=== PATIENT | male | born 1995 | race Caucasian/White ===

== ENCOUNTER 2024-02-27 09:38 | Inpatient (IN) | payer OTHER ==
[2024-02-27] MEDS: ONDANSETRON 4 MG/2 ML VIAL IVP STA (10:25)
[2024-02-27] MEDS: SODIUM CHLORIDE 0.9% 1,000 ML IV STA (10:25)
[2024-02-27] MEDS: LORazepam 2 MG/ML INJ IV STA (10:25)
[2024-02-27 10:31] LABS: INR 1.2 (<1.2); Prothrombin Time 12.5 sec (10.0-12.5)
[2024-02-27 10:42] LABS: ALT 88 U/L (4-49); AST 155 U/L (17-59); African American GFR (CKD) >90 (>60 ml/min/1.73 sqM); Albumin 4.7 g/dL (3.5-5.0); Alkaline Phosphatase 134 U/L (38-126); Amylase 47 U/L (30-110); Anion Gap 20 mmol/L; Blood Urea Nitrogen 11 mg/dL (9-20); Carbon Dioxide 24 mmol/L (22-30); Chloride 94 mmol/L (98-107); Glucose 107 mg/dL (74-99); Lipase 357 U/L (23-300); Non-African American GFR(CKD) >90 (>60 ml/min/1.73 sqM); Phosphorus 1.9 mg/dL (2.5-4.5); Potassium 3.4 mmol/L (3.5-5.1); Sodium 138 mmol/L (137-145); Total Protein 7.1 g/dL (6.3-8.2)
[2024-02-27 10:43] LABS: Basophils % (A) 1 %; Eosinophils % (A) 1 %; HCT 52.5 % (39.0-53.0); HGB 17.8 gm/dL (13.0-17.5); Lymphocytes # (A) 1.7 k/uL (1.0-4.8); Lymphocytes % (A) 23 %; MCH 29.9 pg (25.0-35.0); MCHC 33.9 g/dL (31.0-37.0); Mean Platelet Volume 7.9; Monocytes # (A) 0.6 k/uL (0-1.0); Monocytes % (A) 8 %; Neutrophils # (A) 4.9 k/uL (1.3-7.7); Neutrophils % (A) 67 %; Platelet Count 165 k/uL (150-450); RBC 5.96 m/uL (4.30-5.90); RDW 11.9 % (11.5-15.5); WBC 7.4 k/uL (3.8-10.6)
[2024-02-27 10:55] LABS: Alcohol 449 mg/dL
--- NOTE | 2024-02-27 11:04 | ED ---
Alcohol HPI - General Chief Complaint: Alcohol Stated Complaint: Intoxication Time Seen by Provider: 02/27/24 09:41 Source: family, EMS, RN notes reviewed Mode of arrival: EMS Limitations: altered mental status - History of Present Illness Initial Comments: This is a 28-year-old male who presents to the emergency department for alcohol intoxication. Patient typically drinks a fifth of liquor daily and planned to check into [facility] today, however his alcohol level was too high and he was sent to the emergency department. His mom states that he was sober for 90 days in January and then relapsed about 3 weeks ago. He has been to rehab before and he has also required hospitalization for intoxication. He does not have a history of withdrawal seizures but does typically have shaking and nausea. MD Complaint: alcohol intoxication - Related Data Home Medications Medication Instructions Recorded Confirmed Desvenlafaxine Succinate [Pristiq] 50 mg PO DAILY 02/27/24 02/27/24 Gabapentin 300 mg PO Q8H 02/27/24 02/27/24 Lurasidone [Latuda] 60 mg PO DAILY 02/27/24 02/27/24 Prazosin HCl [Minipress] 4 mg PO HS 02/27/24 02/27/24 Propranolol [Inderal] 10 mg PO TID 02/27/24 02/27/24 QUEtiapine FUMARATE [SEROquel] 200 mg PO HS 02/27/24 02/27/24 hydrOXYzine pamoate [Vistaril] 50 mg PO BID PRN 02/27/24 02/27/24 Allergies Allergy/AdvReac Type Severity Reaction Status Date / Time No Known Allergies Allergy Verified 02/27/24 10:12 Review of Systems ROS Statement: Those systems with pertinent positive or pertinent negative responses have been documented in the HPI. ROS Other: All systems not noted in ROS Statement are negative. Past Medical History Past Surgical History: Tonsillectomy Past Psychological History: Anxiety, Depression Smoking Status: Current every day smoker Past Alcohol Use History: Abuse Past Drug Use History: Marijuana General Exam General appearance: alert, appears intoxicated Head exam: Present: atraumatic, normocephalic, normal inspection Respiratory exam: Present: normal lung sounds bilaterally. Absent: respiratory distress, wheezes, rales, rhonchi, stridor Cardiovascular Exam: Present: regular rate, normal rhythm, normal heart sounds. Absent: systolic murmur, diastolic murmur, rubs, gallop, clicks GI/Abdominal exam: Present: soft, normal bowel sounds. Absent: distended, tenderness, guarding, rebound, rigid Neurological exam: Present: alert, oriented X3, CN II-XII intact Psychiatric exam: Present: normal affect, normal mood Skin exam: Present: warm, dry, intact, normal color. Absent: rash Course Vital Signs 02/27/24 02/27/24 02/27/24 09:41 10:31 11:23 Temperature 97.6 F Pulse Rate 107 H 108 H 105 H Respiratory 16 16 16 Rate Blood Pressure 97/78 131/117 128/80 O2 Sat by Pulse 98 98 95 Oximetry 02/27/24 02/27/24 02/27/24 11:52 12:00 13:03 Temperature Pulse Rate 89 100 96 Respiratory 14 14 14 Rate Blood Pressure 115/73 123/75 109/66 O2 Sat by Pulse 94 L 98 98 Oximetry 02/27/24 02/27/24 02/27/24 14:50 15:54 16:06 Temperature Pulse Rate 106 H 135 H Respiratory 14 14 Rate Blood Pressure 121/76 119/79 O2 Sat by Pulse 99 93 L 100 Oximetry Medical Decision Making - Medical Decision Making This is a 28 year old male who presents to the emergency department for alcohol intoxication. Was pt. sent in by a medical professional or institution? @ -[facility] Did you speak to anyone other than the patient for history? @ -His mother provided the majority of the history. Did you review nursing and triage notes? @ -Yes, and I agree, it is accurate with regards to the patient's symptoms. Were old charts reviewed? @ -No Differential Diagnosis? @ -Differential Alcoholism: Sympathomimetic syndrome, anti-muscarinic syndrome, serotonin syndrome, humaira roleptic malignant syndrome, thyrotoxicosis, encephalitis, acute psychosis, hypoglycemia, trauma, sepsis. This is not meant to be an all-inclusive list. EKG interpreted by me (3pts min.)? @ -Not obtained X-rays interpreted by me (1pt min.)? @ -Not obtained CT interpreted by me (1pt min.)? @ -Not obtained U/S interpreted by me (1pt. min.)? @ -Not obtained What testing was considered but not performed? (CT, X-rays, U/S, labs)? Why? @ -None What meds were considered but not given? Why? @ -None Did you discuss the management of the patient with other professionals? @ -Yes, Dr. Alas, who accepts the patient for admission. Did you reconcile home meds? @ -Yes Was smoking cessation discussed for >3mins.? @ -No Was critical care preformed (if so, how long)? @ -No Were there social determinants of health that impacted care today? How? (Homelessness, low income, unemployed, alcoholism, drug addiction, transportation, low edu. Level, literacy, decrease access to med. care, penitentiary, rehab)? @ -Alcoholism, leading to today's visit for intoxication. Was there de-escalation of care discussed even if they declined? (Discuss DNR or withdrawal of care, Hospice)? @ -No What co-morbidities impacted this encounter? (DM, HTN, Smoking, COPD, CAD, Cancer, CVA, Hep., AIDS, mental health diagnosis, sleep apnea, morbid obesity)? @ -Alcoholism Was patient admitted / discharged? @ -Admitted. Lab work demonstrates an alcohol level of 449. Phosphorus low at 1.9 as well. Neutra-Phos was administered for the hypophosphatemia. Given the patient's level of alcohol intoxication, he was admitted to medicine for further management. He was started on maintenance fluids and given Zofran and Ativan for the nausea and shaking. CIWA protocol initiated for withdrawal symptoms and seizure precautions were ordered as well. Undiagnosed new problem with uncertain prognosis? @ -None Drug Therapy requiring intensive monitoring for toxicity (Heparin, Nitro, Insulin, Cardizem)? @ -None Were any procedures done? @ -None Diagnosis/symptom? @ -Alcohol intoxication Acute, or Chronic, or Acute on Chronic? @ -Acute Uncomplicated (without systemic symptoms) or Complicated (systemic symptoms)? @ -Complicated Side effects of treatment? @ -None Exacerbation, Progression, or Severe Exacerbation] @ -Not applicable Poses a threat to life or bodily function? @ -Yes This case was discussed in detail with the attending ED physician, Dr. Marie. Presentation, findings, and treatment plan discussed in detail as well. - Lab Data Result diagrams: 02/27/24 10:11 02/27/24 10:11 Lab Results 02/27/24 02/27/24 02/27/24 Range/Units 10:11 10:11 10:11 WBC 7.4 (3.8-10.6) k/uL RBC 5.96 H (4.30-5.90) m/uL Hgb 17.8 H (13.0-17.5) gm/dL Hct 52.5 (39.0-53.0) % MCV 88.0 (80.0-100.0) fL MCH 29.9 (25.0-35.0) pg MCHC 33.9 (31.0-37.0) g/dL RDW 11.9 (11.5-15.5) % Plt Count 165 (150-450) k/uL MPV 7.9 Neutrophils % 67 % Lymphocytes % 23 % Monocytes % 8 % Eosinophils % 1 % Basophils % 1 % Neutrophils # 4.9 (1.3-7.7) k/uL Lymphocytes # 1.7 (1.0-4.8) k/uL Monocytes # 0.6 (0-1.0) k/uL Eosinophils # 0.0 (0-0.7) k/uL Basophils # 0.0 (0-0.2) k/uL PT 12.5 (10.0-12.5) sec INR 1.2 H (<1.2) Sodium 138 (137-145) mmol/L Potassium 3.4 L (3.5-5.1) mmol/L Chloride 94 L (98-107) mmol/L Carbon Dioxide 24 (22-30) mmol/L Anion Gap 20 mmol/L BUN 11 (9-20) mg/dL Creatinine 0.76 (0.66-1.25) mg/dL Est GFR (CKD-EPI)AfAm >90 (>60 ml/min/1.73 sqM) Est GFR (CKD-EPI)NonAf >90 (>60 ml/min/1.73 sqM) Glucose 107 H (74-99) mg/dL Calcium 9.0 (8.4-10.2) mg/dL Phosphorus 1.9 L (2.5-4.5) mg/dL Magnesium 2.0 (1.6-2.3) mg/dL Total Bilirubin 1.0 (0.2-1.3) mg/dL AST 155 H (17-59) U/L ALT 88 H (4-49) U/L Alkaline Phosphatase 134 H (38-126) U/L Total Protein 7.1 (6.3-8.2) g/dL Albumin 4.7 (3.5-5.0) g/dL Amylase 47 (30-110) U/L Lipase 357 H (23-300) U/L Urine Color Urine Appearance (Clear) Urine pH (5.0-8.0) Ur Specific [place] (1.001-1.035) Urine Protein (Negative) Urine Glucose (UA) (Negative) Urine Ketones (Negative) Urine Blood (Negative) Urine Nitrite (Negative) Urine Bilirubin (Negative) Urine Urobilinogen (<2.0) mg/dL Ur Leukocyte Esterase (Negative) Urine WBC (0-5) /hpf Urine Opiates Screen (NotDetected) Ur Oxycodone Screen (NotDetected) Urine Methadone Screen (NotDetected) Ur Barbiturates Screen (NotDetected) U Tricyclic Antidepress (NotDetected) Ur Phencyclidine Scrn (NotDetected) Ur Amphetamines Screen (NotDetected) U Methamphetamines Scrn (NotDetected) U Benzodiazepines Scrn (NotDetected) Urine Cocaine Screen (NotDetected) U Marijuana (THC) Screen (NotDetected) Serum Alcohol 449 H* mg/dL 02/27/24 Range/Units 10:11 WBC (3.8-10.6) k/uL RBC (4.30-5.90) m/uL Hgb (13.0-17.5) gm/dL Hct (39.0-53.0) % MCV (80.0-100.0) fL MCH (25.0-35.0) pg MCHC (31.0-37.0) g/dL RDW (11.5-15.5) % Plt Count (150-450) k/uL MPV Neutrophils % % Lymphocytes % % Monocytes % % Eosinophils % % Basophils % % Neutrophils # (1.3-7.7) k/uL Lymphocytes # (1.0-4.8) k/uL Monocytes # (0-1.0) k/uL Eosinophils # (0-0.7) k/uL Basophils # (0-0.2) k/uL PT (10.0-12.5) sec INR (<1.2) Sodium (137-145) mmol/L Potassium (3.5-5.1) mmol/L Chloride (98-107) mmol/L Carbon Dioxide (22-30) mmol/L Anion Gap mmol/L BUN (9-20) mg/dL Creatinine (0.66-1.25) mg/dL Est GFR (CKD-EPI)AfAm (>60 ml/min/1.73 sqM) Est GFR (CKD-EPI)NonAf (>60 ml/min/1.73 sqM) Glucose (74-99) mg/dL Calcium (8.4-10.2) mg/dL Phosphorus (2.5-4.5) mg/dL Magnesium (1.6-2.3) mg/dL Total Bilirubin (0.2-1.3) mg/dL AST (17-59) U/L ALT (4-49) U/L Alkaline Phosphatase (38-126) U/L Total Protein (6.3-8.2) g/dL Albumin (3.5-5.0) g/dL Amylase (30-110) U/L Lipase (23-300) U/L Urine Color Colorless Urine Appearance Clear (Clear) Urine pH 7.0 (5.0-8.0) Ur Specific [place] 1.008 (1.001-1.035) Urine Protein 1+ H (Negative) Urine Glucose (UA) Negative (Negative) Urine Ketones Negative (Negative) Urine Blood Negative (Negative) Urine Nitrite Negative (Negative) Urine Bilirubin Negative (Negative) Urine Urobilinogen <2.0 (<2.0) mg/dL Ur Leukocyte Esterase Negative (Negative) Urine WBC 2 (0-5) /hpf Urine Opiates Screen Not Detected (NotDetected) Ur Oxycodone Screen Not Detected (NotDetected) Urine Methadone Screen Not Detected (NotDetected) Ur Barbiturates Screen Not Detected (NotDetected) U Tricyclic Antidepress Not Detected (NotDetected) Ur Phencyclidine Scrn Not Detected (NotDetected) Ur Amphetamines Screen Not Detected (NotDetected) U Methamphetamines Scrn Not Detected (NotDetected) U Benzodiazepines Scrn Not Detected (NotDetected) Urine Cocaine Screen Not Detected (NotDetected) U Marijuana (THC) Screen Detected H (NotDetected) Serum Alcohol mg/dL Disposition Clinical Impression: Alcoholic intoxication Disposition: ADMITTED IP TO THIS HOSP
[2024-02-27] MEDS ORDERED: NALOXONE 0.4 MG/ML 1 ML VIAL IV PRN (11:06)
[2024-02-27] MEDS ORDERED: IBUPROFEN 400 MG TAB PO PRN (11:06)
[2024-02-27] MEDS ORDERED: KETOROLAC 15 MG/ML 1 ML VIAL IVP PRN (11:06)
[2024-02-27] MEDS ORDERED: LORazepam 2 MG/ML INJ IV PRN (11:07)
[2024-02-27 11:34] LABS: Appearance,Urine Clear (Clear); Bilirubin,Urine Negative (Negative); Blood,Urine Negative (Negative); Color,Urine Colorless; Glucose,Urine (UA) Negative (Negative); Ketones,Urine Negative (Negative); Leukocyte Esterase,Urine Negative (Negative); Nitrite,Urine Negative (Negative); Protein,Urine 1+ (Negative); Specific Gravity,Urine 1.008 (1.001-1.035); Urobilinogen,Urine <2.0 mg/dL (<2.0); WBC,Urine 2 /hpf (0-5)
[2024-02-27] MEDS: SODIUM CHLORIDE 0.9% 1,000 ML IV SCH (11:53)
[2024-02-27] MEDS: GABAPENTIN 300 MG CAP PO SCH (11:53)
[2024-02-27 11:57] LABS: Amphetamine Screen,Urine Not Detected (NotDetected); Barbiturate Screen,Urine Not Detected (NotDetected); Benzodiazepines Screen,Urine Not Detected (NotDetected); Cocaine Screen,Urine Not Detected (NotDetected); Methadone Screen, Urine Not Detected (NotDetected); Opiate Screen,Urine Not Detected (NotDetected); Phencyclidine Screen,Urine Not Detected (NotDetected); Tricyclic Antidepressant,Urine Not Detected (NotDetected); Urn Cannabinoid Scrn Detected (NotDetected)
[2024-02-27 11:58] LABS: Oxycodone Screen, Urine Not Detected (NotDetected)
[2024-02-27] MEDS: POTAS-SOD-PHOS 278-164-250 MG 1 EACH PACKET PO STA (13:03)
[2024-02-27] MEDS: THIAMINE 100 MG/ML 2 ML VIAL IM STA (13:47)
[2024-02-27] MEDS: ONDANSETRON 4 MG/2 ML VIAL IVP PRN (14:47)
[2024-02-27] MEDS: LORazepam 2 MG/ML INJ IV PRN ×2 (16:23→20:12)
[2024-02-27] MEDS: METOCLOPRAMIDE 5 MG/ML 2 ML VIAL IVP STA (16:23)
[2024-02-27] MEDS: NICOTINE 14MG/24HR PATCH TRANSDERM SCH (16:39)
[2024-02-27] MEDS: PROCHLORPERAZINE INJ 10 MG/2 ML VIAL IVP STA (16:39)
[2024-02-27] MEDS: PROPRANOLOL 10 MG TAB PO SCH (19:43)
[2024-02-27] MEDS: QUEtiapine 200 MG TAB PO SCH (20:28)
[2024-02-27] MEDS: PRAZOSIN 1 MG CAP PO SCH (20:28)
[2024-02-27] MEDS: HEPARIN SODIUM,PORCINE 5,000 UNIT/ML 1 ML VIAL SQ SCH (20:33)
--- NOTE | 2024-02-27 22:19 | HP ---
HISTORY AND PHYSICAL CHIEF COMPLAINT: Alcohol intoxication. HISTORY OF PRESENT ILLNESS: This is a 28-year-old gentleman with a past medical history of anxiety, depression, alcoholism, was taken to [facility] for rehab, but apparently because of the intoxication, the patient is taken to [facility], admitted for further evaluation and treatment. The patient apparently had labs about 3 weeks ago and alcohol level was found to be 449. There is no history of any fever, rigors, or chills. The patient is slightly drowsy. PAST MEDICAL HISTORY: Anxiety, depression, history of alcohol. Rest of the history and rest of the chart is also reviewed. HOME MEDICATIONS: . Dose and rest of medications noted. ALLERGIES: None. Family history, social history, review of systems could not be taken because of the change in mental status secondary to alcohol intoxication. PHYSICAL EXAMINATION: VITAL SIGNS: Pulse is 106, blood pressure 121/70, respirations 14. CHEST: A few scattered rhonchi and crackles. CARDIOVASCULAR: S1, S2. ABDOMEN: Soft, nontender. LEGS: No edema. NERVOUS SYSTEM: The patient is drowsy. JOINTS: No active deforming arthropathy. LABORATORY DATA: Reviewed. ASSESSMENT: 1. Acute alcohol intoxication. 2. Elevated AST, ALT. 3. History of anxiety, depression. 4. History of nicotine dependence. RECOMMENDATIONS AND DISCUSSION: This is a 28-year-old gentleman presented with multiple complex medical issues, we will monitor the patient closely. [facility] protocol. Repeat labs. Alcohol withdrawal precautions. IV fluids. Prognosis guarded. Once the patient is stable, we will send the patient back to [facility]. MMCHRIS / JERAMIE: [id number] / MARI
[2024-02-28] MEDS: LORazepam 2 MG/ML INJ IV PRN (05:10)
[2024-02-28 05:46] LABS: Basophils % (A) 0 %; Eosinophils % (A) 1 %; HCT 41.6 % (39.0-53.0); Lymphocytes # (A) 1.5 k/uL (1.0-4.8); Lymphocytes % (A) 28 %; MCHC 34.3 g/dL (31.0-37.0); MCV 90.5 fL (80.0-100.0); Mean Platelet Volume 8.7; Monocytes # (A) 0.3 k/uL (0-1.0); Monocytes % (A) 5 %; Neutrophils # (A) 3.6 k/uL (1.3-7.7); Neutrophils % (A) 66 %; RDW 12.2 % (11.5-15.5); WBC 5.5 k/uL (3.8-10.6)
[2024-02-28 06:00] LABS: ALT 77 U/L (4-49); AST 117 U/L (17-59); African American GFR (CKD) >90 (>60 ml/min/1.73 sqM); Albumin 3.9 g/dL (3.5-5.0); Alkaline Phosphatase 103 U/L (38-126); Anion Gap 8 mmol/L; Blood Urea Nitrogen 15 mg/dL (9-20); Calcium 8.6 mg/dL (8.4-10.2); Carbon Dioxide 27 mmol/L (22-30); Chloride 97 mmol/L (98-107); Glucose 115 mg/dL (74-99); Non-African American GFR(CKD) >90 (>60 ml/min/1.73 sqM); Sodium 132 mmol/L (137-145); Total Bilirubin 1.5 mg/dL (0.2-1.3); Total Protein 5.7 g/dL (6.3-8.2)
[2024-02-28 06:44] LABS: HGB 14.3 gm/dL (13.0-17.5)
[2024-02-28] MEDS: PANTOPRAZOLE 40 MG TABLET PO SCH (06:45)
[2024-02-28 06:46] LABS: Platelet Count 88 k/uL (150-450); Tear Drop Cells Present
[2024-02-28] MEDS: DESVENLAFAXINE SUCCINATE 50 MG TAB.ER.24H PO SCH (09:23)
[2024-02-28] MEDS: LURASIDONE 60 MG TAB PO SCH (09:23)
[2024-02-28] MEDS: THIAMINE 100 MG TAB PO SCH (09:23)
[2024-02-28] MEDS ORDERED: Potassium Replacement Protocol 1 EACH MISC MISCELLANE PRN ×2 (11:29→15:07)
[2024-02-28] MEDS ORDERED: Magnesium Replacement Protocol 1 EACH MISC MISCELLANE PRN ×2 (11:29→15:07)
[2024-02-28] MEDS ORDERED: LORazepam 0.5 MG TAB PO PRN (13:12)
[2024-02-28] MEDS ORDERED: LORazepam 1 MG TAB PO PRN (13:12)
[2024-02-28] MEDS: POTASSIUM CHLORIDE ER 20 MEQ TAB.ER PO SCH (13:21)
[2024-02-28] MEDS: chlordiazePOXIDE 25 MG CAP PO SCH ×2 (13:22→20:53)
[2024-02-28] MEDS: hydrOXYzine pamoate 25 MG CAP PO PRN (13:22)
[2024-02-28] MEDS: LORazepam 1 MG TAB PO PRN (13:22)
[2024-02-28] MEDS: PANTOPRAZOLE 40 MG/10 ML VIAL IVP SCH (16:01)
[2024-02-28] MEDS: 0.9% NACL WITH KCL 40 MEQ/L 1,000 ML IV SCH (21:16)
--- NOTE | 2024-02-29 01:01 | PN ---
PROGRESS NOTE DATE OF SERVICE: 02/28/2024 SUBJECTIVE: This is a 28-year-old gentleman who was admitted with acute alcohol intoxication. He is having delirium tremens. No chest pain, no palpitation. OBJECTIVE: VITAL SIGNS: Pulse 105, blood pressure 130/60, respirations 16. CHEST: A few scattered rhonchi. ABDOMEN: Soft. NERVOUS SYSTEM: Nonfocal. LABORATORY DATA: Sodium 132, potassium 3. ASSESSMENT: 1. Acute alcohol intoxication. 2. Acute delirium tremens. 3. Elevated AST, ALT. 4. Anxiety, depression. 5. Multiple complex medical issues. RECOMMENDATIONS: Recommended to continue current management, continue symptomatic treatment, and add Librium to the current regimen. Continue with CIWA protocol p.o. and IV and continue to monitor. Prognosis is extremely guarded. Further recommendations to follow. MMODL / IJN: [id number] /
[2024-02-29] MEDS: cloNIDine HCL 0.1 MG TAB PO STA (06:34)
[2024-02-29 08:31] LABS: ALT 70 U/L (4-49); AST 82 U/L (17-59); African American GFR (CKD) >90 (>60 ml/min/1.73 sqM); Albumin 4.2 g/dL (3.5-5.0); Alkaline Phosphatase 124 U/L (38-126); Anion Gap 6 mmol/L; Blood Urea Nitrogen 18 mg/dL (9-20); Calcium 9.6 mg/dL (8.4-10.2); Carbon Dioxide 29 mmol/L (22-30); Chloride 101 mmol/L (98-107); Glucose 85 mg/dL (74-99); Magnesium 1.8 mg/dL (1.6-2.3); Non-African American GFR(CKD) >90 (>60 ml/min/1.73 sqM); Potassium 3.2 mmol/L (3.5-5.1); Sodium 136 mmol/L (137-145); Total Bilirubin 1.2 mg/dL (0.2-1.3); Total Protein 6.3 g/dL (6.3-8.2)
[2024-02-29 08:41] LABS: Basophils % (A) 1 %; Eosinophils % (A) 1 %; HCT 43.6 % (39.0-53.0); HGB 14.1 gm/dL (13.0-17.5); Lymphocytes % (A) 21 %; MCH 29.7 pg (25.0-35.0); MCHC 32.3 g/dL (31.0-37.0); MCV 91.8 fL (80.0-100.0); Mean Platelet Volume 8.6; Monocytes # (A) 0.4 k/uL (0-1.0); Monocytes % (A) 7 %; Neutrophils # (A) 3.4 k/uL (1.3-7.7); Neutrophils % (A) 69 %; RBC 4.75 m/uL (4.30-5.90); WBC 4.9 k/uL (3.8-10.6)
[2024-02-29 08:45] LABS: Platelet Count 72 k/uL (150-450)
[2024-02-29] MEDS ORDERED: Magnesium Replacement Protocol 1 EACH MISC MISCELLANE PRN (10:07)
[2024-02-29] MEDS ORDERED: Potassium Replacement Protocol 1 EACH MISC MISCELLANE PRN (10:07)
[2024-02-29 10:56] LABS: Glucose,Whole Blood 84 mg/dL (70-110)
[2024-02-29] MEDS: HALOPERIDOL LACTATE 5 MG/ML 1 ML VIAL IVP PRN (11:21)
[2024-02-29] MEDS: POTASSIUM CHLORIDE ER 20 MEQ TAB.ER PO SCH (11:30)
[2024-02-29] MEDS ORDERED: cloNIDine HCL 0.1 MG TAB PO PRN (12:04)
--- NOTE | 2024-02-29 12:05 | P.CNPUL ---
History of Present Illness Consult date: 02/29/24 Requesting physician: Meenakshi Quintanilla Chief complaint: Alcohol withdrawal syndrome. History of present illness: Pulmonary/critical care consult dated February 29, 2024. This is a 28-year-old male who presented to the emergency department on February 26, with alcohol intoxication. The patient typically drinks 1/5 of liquor every day, and apparently plan to check in to [facility] today, however, his alcohol level was too high and he was sent to the emergency room. The patient's mom apparently stated that he was sober for 90 days, and unfortunately, 3 weeks prior to this admission, had a relapse. He does have a history of alcohol withdrawal, and alcoholic seizures. Other than the alcohol intoxication and alcohol withdrawal syndrome and alcohol seizures, the patient's other medical history is only positive for anxiety and depression, as well as ongoing tobacco use, and marijuana use. Laboratory data includes a white count 4.9, hemoglobin 14.1, hematocrit 43.6, and a platelet count of 72,000. Sodium 136, potassium 3.2, chlorides 101, CO2 29, BUN 18, and creatinine 0.99. Glucose is 84. AST is 82, ALT is 70. Lipase is 357. The patient was out on the floor, in room 377, and, because of ongoing agitation, confusion, and active alcohol withdrawal, he was transferred to the intensive care unit, for further monitoring and management. The patient is getting Ativan, per the CIWA protocol and, in addition, I have added Haldol 4 to 8 mg every 4 hours, and Seroquel 100 mg 3 times a day. Should these medications not be able to control the patient, we will start him on dexmedetomidine or Precedex. Review of Systems REVIEW OF SYSTEMS: CONSTITUTIONAL: Agitation, confusion, alcohol withdrawal behavior. NEUROLOGIC: Shaking. HEENT: [ Negative.] CARDIAC: [Negative.] PULMONARY: [Negative.] GI: [Negative.] : [Negative.] RHEUMATOLOGIC: [ Negative.] IMMUNOLOGIC: [ Negative.] ENDOCRINE: [Negative. ] DERMATOLOGIC: [Negative.] Past Medical History History of Any Multi-Drug Resistant Organisms: None Reported Past Surgical History: Tonsillectomy Past Psychological History: Anxiety, Depression Smoking Status: Current every day smoker Past Alcohol Use History: Abuse Past Drug Use History: Marijuana Medications and Allergies Home Medications Medication Instructions Recorded Confirmed Type Desvenlafaxine Succinate [Pristiq] 50 mg PO DAILY 02/27/24 02/27/24 History Gabapentin 300 mg PO Q8H 02/27/24 02/27/24 History Lurasidone [Latuda] 60 mg PO DAILY 02/27/24 02/27/24 History Prazosin HCl [Minipress] 4 mg PO HS 02/27/24 02/27/24 History Propranolol [Inderal] 10 mg PO TID 02/27/24 02/27/24 History QUEtiapine FUMARATE [SEROquel] 200 mg PO HS 02/27/24 02/27/24 History hydrOXYzine pamoate [Vistaril] 50 mg PO BID PRN 02/27/24 02/27/24 History Allergies Allergy/AdvReac Type Severity Reaction Status Date / Time No Known Allergies Allergy Verified 02/27/24 10:12 Physical Exam Osteopathic Statement: *. No significant issues noted on an osteopathic structural exam other than those noted in the History and Physical/Consult. Vitals: Vital Signs Temp Pulse Resp BP Pulse Ox 02/29/24 08:00 99 18 02/29/24 04:00 99 18 133/71 96 02/28/24 23:55 104 H 18 144/76 95 02/28/24 20:00 98.1 F 76 18 135/83 94 L 02/28/24 16:00 101 H 18 150/75 96 Intake and Output 02/28/24 02/29/24 02/29/24 22:59 06:59 14:59 Intake Total 250 10 100 Balance 250 10 100 Intake: IV 10 10 10 Invasive Line 2 10 10 10 Oral 240 90 Other: Voiding Method Toilet Toilet Toilet Urinal Urinal Urinal # Voids 1 4 No acute distress, currently sleeping, responding well to Ativan and Haldol. HEENT examination is grossly unremarkable. Mucous membranes are moist. No oral lesions. Neck supple. Full range of motion. No adenopathy thyromegaly or neck vein distention. Cardiovascular examination reveals regular rhythm rate. S1-S2 normal. No S3 or S4. No discernible murmur noted. Heart rate 99 bpm. Lungs reveal clear breath sounds. Breath sounds are equal bilaterally. No adventitious lung sounds including wheezes rhonchi or crackles. Room air saturation 96%. Abdomen soft bowel sounds are heard. No masses or tenderness. Extremities are intact. No cyanosis clubbing or edema. Skin is without rash or lesion. Neurologic examination is brief but nonfocal. Results - Laboratory Findings CBC and BMP: 02/29/24 07:09 02/29/24 07:09 PT/INR, D-dimer PT 12.5 sec (10.0-12.5) 02/27/24 10:11 INR 1.2 (<1.2) H 02/27/24 10:11 Abnormal lab findings: Abnormal Labs 02/27/24 02/27/24 02/27/24 10:11 10:11 10:11 RBC 5.96 H Hgb 17.8 H Plt Count INR 1.2 H Sodium Potassium 3.4 L Chloride 94 L Glucose 107 H Phosphorus 1.9 L Total Bilirubin AST 155 H ALT 88 H Alkaline Phosphatase 134 H Total Protein Lipase 357 H Urine Protein U Marijuana (THC) Screen Serum Alcohol 449 H* 02/27/24 02/28/24 02/28/24 10:11 05:21 05:21 RBC Hgb Plt Count 88 L INR Sodium 132 L Potassium 3.0 L Chloride 97 L Glucose 115 H Phosphorus Total Bilirubin 1.5 H AST 117 H ALT 77 H Alkaline Phosphatase Total Protein 5.7 L Lipase Urine Protein 1+ H U Marijuana (THC) Screen Detected H Serum Alcohol 02/29/24 02/29/24 07:09 07:09 RBC Hgb Plt Count 72 L INR Sodium 136 L Potassium 3.2 L Chloride Glucose Phosphorus Total Bilirubin AST 82 H ALT 70 H Alkaline Phosphatase Total Protein Lipase Urine Protein U Marijuana (THC) Screen Serum Alcohol Assessment and Plan Assessment: Chronic alcohol abuse, with alcohol withdrawal syndrome, and alcoholic seizures. History of chronic tobacco use. History of chronic alcohol abuse. History of marijuana use. History of anxiety/depression. Plan: Plan dated February 29, 2024. The patient is seen in the intensive care unit, room 257. He is transferred from the general medical floor to the ICU for further monitoring and management. The patient is getting Ativan, via the CIWA protocol, and, in addition, I have added Haldol, 48 mg every 4 hours as needed, and Seroquel 100 mg 3 times a day. If these medications are able to control this patient, we will add dexmedetomidine to the regimen. Additional recommendations and suggestions are forthcoming. Labs, x-rays, medications are reviewed. Prognosis is guarded. Th e patient does have a sitter in the room. Time with Patient: Greater than 30
[2024-02-29] MEDS: QUEtiapine 100 MG TAB PO SCH (12:37)
[2024-02-29] MEDS: ACETAMINOPHEN TAB 325 MG TAB PO PRN (18:55)
[2024-03-01] MEDS: HALOPERIDOL LACTATE 5 MG/ML 1 ML VIAL IVP PRN (00:51)
[2024-03-01] MEDS: DEXMEDETOMIDINE/0.9% NACL(PMX) 400 MCG in EMPTY BAG 1 BAG IV SCH (05:56)
--- NOTE | 2024-03-01 06:25 | PN ---
PROGRESS NOTE DATE OF SERVICE: 02/29/2024 SUBJECTIVE: This 28-year-old gentleman with acute alcohol withdrawal and delirium tremens. He is requiring massive dose of Ativan, and in addition to multiple sedatives, the patient still has sweating and features of DTs. CIWA scale is more than 20 consistently. I have discussed with Dr. Perez and considering ICU transfer. No chest pain. No palpitation. PAST MEDICAL HISTORY: Reviewed. REVIEW OF SYSTEMS: 14-point review is negative. CURRENT MEDICATIONS: Reviewed and include Ativan and rest was reviewed. PHYSICAL EXAM: VITAL SIGNS: Pulse 99, blood pressure 130/70, respirations 18. HEENT: Conjunctivae normal. NECK: No JVD. CARDIOVASCULAR: S1, S2. RESPIRATIONS: Decreased at bases. Scattered rhonchi. ABDOMEN: Soft, nontender. NERVOUS SYSTEM: Nonfocal. LABORATORY DATA: Sodium 130, potassium 3.2. Rest of the labs are noted. ASSESSMENT: 1. Acute alcohol intoxication. 2. Acute delirium tremens, requiring massive dose of Ativan. 3. Elevated AST, ALT. 4. Anxiety, depression. 5. Hypokalemia. 6. Thrombocytopenia. 7. Multiple complex medical issues. RECOMMENDATIONS AND DISCUSSION: This 28-year-old gentleman presented with multiple complex medical issues. We will monitor the patient closely. Continue the current medications, symptomatic treatment, continue with CIWA protocol, transferred to ICU. Closely with Dr. Perez. Guarded prognosis. I would also obtain psych consult also. Further recommendations to follow. MMODL / IJN: [id number] /
[2024-03-01 06:32] LABS: ALT 64 U/L (4-49); AST 56 U/L (17-59); African American GFR (CKD) >90 (>60 ml/min/1.73 sqM); Albumin 3.8 g/dL (3.5-5.0); Alkaline Phosphatase 109 U/L (38-126); Anion Gap 7 mmol/L; Blood Urea Nitrogen 14 mg/dL (9-20); Calcium 9.1 mg/dL (8.4-10.2); Carbon Dioxide 23 mmol/L (22-30); Chloride 107 mmol/L (98-107); Glucose 79 mg/dL (74-99); Magnesium 1.9 mg/dL (1.6-2.3); Non-African American GFR(CKD) >90 (>60 ml/min/1.73 sqM); Potassium 3.7 mmol/L (3.5-5.1); Sodium 137 mmol/L (137-145); Total Bilirubin 1.2 mg/dL (0.2-1.3); Total Protein 5.9 g/dL (6.3-8.2)
[2024-03-01 06:35] LABS: Basophils % (A) 0 %; Eosinophils # (A) 0.1 k/uL (0-0.7); Eosinophils % (A) 3 %; HCT 42.9 % (39.0-53.0); HGB 13.8 gm/dL (13.0-17.5); Lymphocytes # (A) 1.2 k/uL (1.0-4.8); Lymphocytes % (A) 31 %; MCH 29.7 pg (25.0-35.0); MCV 92.8 fL (80.0-100.0); Monocytes # (A) 0.4 k/uL (0-1.0); Monocytes % (A) 10 %; Neutrophils # (A) 2.1 k/uL (1.3-7.7); Neutrophils % (A) 53 %; RBC 4.62 m/uL (4.30-5.90); RDW 12.2 % (11.5-15.5)
[2024-03-01 06:36] LABS: Platelet Count 72 k/uL (150-450)
[2024-03-01 10:57] LABS: Amylase 41 U/L (30-110); Lipase 342 U/L (23-300)
--- NOTE | 2024-03-01 12:07 | P.PN ---
Subjective Progress Note Date: 03/01/24 This is a 28-year-old male who presented to the emergency department on February 26, with alcohol intoxication. The patient typically drinks 1/5 of liquor every day, and apparently plan to check in to [place] today, however, his alcohol level was too high and he was sent to the emergency room. The patient's mom apparently stated that he was sober for 90 days, and unfortunately, 3 weeks prior to this admission, had a relapse. He does have a history of alcohol withdrawal, and alcoholic seizures. Other than the alcohol intoxication and alcohol withdrawal syndrome and alcohol seizures, the patient's other medical history is only positive for anxiety and depression, as well as ongoing tobacco use, and marijuana use. Laboratory data includes a white count 4.9, hemoglobin 14.1, hematocrit 43.6, and a platelet count of 72,000. Sodium 136, potassium 3.2, chlorides 101, CO2 29, BUN 18, and creatinine 0.99. Glucose is 84. AST is 82, ALT is 70. Lipase is 357. The patient was out on the floor, in room 377, and, because of ongoing agitation, confusion, and active alcohol withdrawal, he was transferred to the intensive care unit, for further monitoring and management. The patient is getting Ativan, per the CIWA protocol and, in addition, I have added Haldol 4 to 8 mg every 4 hours, and Seroquel 100 mg 3 times a day. Should these medications not be able to control the patient, we will start him on dexmedetomidine or Precedex. 03/01/2024, the patient seems to be much more comfortable. The patient is currently off Precedex. Overnight, the patient was kept on Precedex at 1.4 mcg/kg/h and the patient was taken off the Precedex this morning. He is on room air oxygen. IV fluids are in the form of normal saline at rate of 75 cc an hour and the patient has normal CBC and normal electrolytes. Lipase level was 357 at time of admission dropped down to 342. The patient seems to be much more comfortable at this point in time. No agitation. No hemodynamic instability no fever. No reported aspiration. The patient is on room air oxygen. No other complaints otherwise for now. The patient remains on IV fluids. The patient remains on Ativan per protocol for alcohol withdrawals. The patient on Seroquel 100 mg p.o. 3 times daily. Patient is on thiamine. Patient is also on Librium 25 mg p.o. 3 times daily. Objective - Vital Signs Vital signs: Vital Signs Temp 96.4 F L 03/01/24 08:00 Pulse 54 L 03/01/24 09:00 Resp 15 03/01/24 09:00 BP 123/97 03/01/24 09:00 Pulse Ox 100 03/01/24 09:00 FiO2 Intake & Output 02/29/24 03/01/24 03/01/24 18:59 06:59 18:59 Intake Total 550 1865.506 315.748 Output Total 900 0 Balance 550 965.506 315.748 Weight 92.4 kg Intake: IV 460 900 75 0.9% NaCl with KCl 40 Meq 825 75 /l 1,000 ml @ 75 mls/hr IV .[id number] TABITHA Rx#: [id number] IVF 450 75 Invasive Line 2 10 Intake, IV Titration 5.506 240.748 Amount 0.9% NaCl with KCl 40 Meq 225 /l 1,000 ml @ 75 mls/hr IV .[id number] TABITHA Rx#: [id number] Dexmedetomidine/0.9% NaCl 5.506 15.748 (Pmx) 400 mcg In Empty Bag 1 bag @ 0.2 MCG/KG/HR 4.62 mls/hr IV .[id number] TABITHA Rx#:[id number] Oral 90 960 Output: Urine 900 0 Other: Voiding Method Urinal Toilet Urinal # Voids 0 2 # Bowel Movements 1 - Exam No acute distress, currently sleeping,, comfortable, arousable and communicating. On room air oxygen. No agitation. HEENT examination is grossly unremarkable. Mucous membranes are moist. No oral lesions. Neck supple. Full range of motion. No adenopathy thyromegaly or neck vein dist ention. Cardiovascular examination reveals regular rhythm rate. S1-S2 normal. No S3 or S4. No discernible murmur noted. v Lungs reveal clear breath sounds. Breath sounds are equal bilaterally. No adventitious lung sounds including wheezes rhonchi or crackles. v Abdomen soft bowel sounds are heard. No masses or tenderness. Extremities are intact. No cyanosis clubbing or edema. Skin is without rash or lesion. Neurologic examination is brief but nonfocal. - Labs CBC & Chem 7: 03/01/24 05:25 03/01/24 05:25 Labs: Abnormal Lab Results - Last 24 Hours (Table) 03/01/24 03/01/24 Range/Units 05:25 05:25 Plt Count 72 L (150-450) k/uL ALT 64 H (4-49) U/L Total Protein 5.9 L (6.3-8.2) g/dL Assessment and Plan Plan: Chronic alcohol abuse, with alcohol withdrawal syndrome, and alcoholic seizures. Currently stable. The patient was taken off the Precedex. The patient is taking Ativan on as-needed basis per protocol. Haldol is also on board. Patient is also on Librium 25 mg 3 times daily and Seroquel 100 mg p.o. 3 times daily. History of chronic tobacco use. History of alcoholism. History of marijuana use. History of anxiety/depression. Mild pancreatitis, currently inactive and stable in the lipase level is downtrending. Plan: Continue IV fluids and the patient is on normal saline at rate of 75 cc an hour Patient is on room air oxygen Patient is off Precedex Continue Ativan Continue Librium 25 mg p.o. 3 times daily Continue Seroquel 100 mg p.o. 3 times daily Haldol as needed Monitor electrolytes Monitor lipase Monitor mental status and provide diet Thiamine replacement Will continue to follow make further recommendations based on the progress.
[2024-03-01] MEDS: MULTIVITAMINS, THERA 1 EACH TAB PO SCH (12:11)
[2024-03-01] MEDS: FOLIC ACID 1 MG TAB PO SCH (12:11)
--- NOTE | 2024-03-01 22:21 | PN ---
PROGRESS NOTE DATE OF SERVICE: 03/01/2024 SUBJECTIVE: This is a 28-year-old gentleman who was admitted with alcohol withdrawal and delirium tremens. We will closely monitor. The patient was monitored in ICU at this time. The patient received massive doses or quantities of Ativan. The patient was on a Precedex for a short time, so the patient is closely monitored. Multiple consultants are following the patient closely. PAST MEDICAL HISTORY: Reviewed. REVIEW OF SYSTEMS: A 14-point review is negative except as mentioned earlier. CURRENT MEDICATIONS: Reviewed include Ativan p.r.n. PHYSICAL EXAMINATION: VITAL SIGNS: Pulse is 61, blood pressure 125/90, respirations 13. HEENT: Conjunctivae normal. CARDIOVASCULAR: S1, S2. RESPIRATIONS: Diminished. ABDOMEN: Soft. NERVOUS SYSTEM: Mild diffuse tremors. LABORATORY DATA: Potassium 3.7, platelets 72, AST ALT noted. ASSESSMENT: 1. Acute alcohol intoxication. 2. Acute delirium tremens requiring massive dose of Ativan and monitor in ICU. 3. Elevated AST, ALT, alcoholic hepatitis. 4. Anxiety, depression. 5. Hypokalemia. 6. Thrombocytopenia. 7. Multiple complex medical issues. RECOMMENDATIONS: Recommended to continue current management, continue symptomatic treatment. P.r.n. Precedex. Otherwise, continue with current medications. SARAHI closely follow repeat labs monitor platelet this prognosis guarded. Closely follow with Dr. Tillman. Guarded prognosis. Further recommendations to follow. MMCHEYL / SHILPAN: [id number] /
--- NOTE | 2024-03-01 22:45 | P.CN ---
Psychiatric Consult - . Consult date: 03/01/24 Consult:: 03/01/24 22:44 CONSULTATION Reason for consult: Anxiety and Alcoholism identifying Data: The patient is 29 years old, single male who lives in [place], [place]. Reason for admission: Alcohol intoxication History of present illness: The patient was brought to the emergency department from [place] for Alcohol intoxication. He with After initial examination and other work-up, the patient was transferred to medical floor for further management. He was taken to the ICU for Precedex drip. Currently he is off Precedex. During this evaluation, the patient was sedated but able to communicate. He was a poor historian due to mild confusion, memory deficit secondary to sedation. According to the patient he was brought to the hospital by his parents. He has some vague recollection of [place] but did not remember that he was sent from [place] for severe intoxication. The patient noted that he does not recollect lot of things. He did not know that he is in [facility] in [place]. He thought he is in [place]. The patient noted that he is a heavy drinker and has been drinking heavily since early twenties. The patient noted that he started seeing a therapist and a psychiatrist around age 17. He was provided t herapy and medications. He stated taking Paxil and Buspar. He noted going to out-pt treatment od and off since then. He currently goes to [facility] in [place].. He sees a psychiatrist once a month and a therapist once or twice a week. He stated being on Latuda and Pritiq. His first psychiatric admission was in 2020. As per pt, he was in the hospital for Alcohol intoxication and seen by a psychiatrist. He was transferred to psychiatric unit for, I told bunch of things to the nurse. He does not remember what he told her. He does not remember what medications he was on at the time of discharge. The patient noted being on Effexor, Paxil, Seroquel, Trazodone, Lexapro, Propranolol, Remeron, Celexa, and Latuda in the past. He feels Effexor helped him the most but he was taken off that due to abdominal pain and put on Pristiq. He noted that Seroquel helps him sleep. The patient denied feeling depressed, worthless, hopeless, suicidal, or homicidal. He denied hearing voices, seeing things, or feeling paranoid. He admitted to feeling anxious. Current and past medications: Out-pt follow-up: History of past psychiatric illness: No other than stated in HPI. No history of suicidal or homicidal ideations or behavior. Past medical history: None significant, as per patient. Substance abuse history: The patient abuses Alcohol and marijuana on a dily basis. He was sober for 90 days but recently relapsed. MSE: Alert and attentive Orientation X2. Pleasant and cooperative. Psychomotor activity: Reduced. Speech: Normal tone, quality, and quantity Mood: Anxious. Affect: Subdued and flat SI or HI: None Thought content: Normal Thought process: Normal Perceptual disturbance: Normal Cognition: Mild confusion and memory deficit. Judgement and Insight: Fair. Diagnosis: H/O Bipolar disorder, unspecified. Plan: Medication recommendations: Continue current medications. The patient does not meet in-patient criteria for psychiatric admission at this time. He will benefit by going to a rehab program Please reconsult if MS changes.
[2024-03-02 05:32] VITALS: TEMP 97.8
[2024-03-02] MEDS: PANTOPRAZOLE 40 MG/10 ML VIAL IVP SCH (08:12)
[2024-03-02] MEDS: LORazepam 1 MG TAB PO PRN (08:12)
[2024-03-02 10:04] LABS: Basophils % (A) 1 %; Eosinophils # (A) 0.1 k/uL (0-0.7); Eosinophils % (A) 3 %; HCT 44.7 % (39.0-53.0); HGB 14.1 gm/dL (13.0-17.5); Lymphocytes # (A) 1.3 k/uL (1.0-4.8); Lymphocytes % (A) 27 %; MCH 29.6 pg (25.0-35.0); MCHC 31.6 g/dL (31.0-37.0); MCV 93.6 fL (80.0-100.0); Mean Platelet Volume 9.1; Monocytes # (A) 0.4 k/uL (0-1.0); Monocytes % (A) 7 %; Neutrophils # (A) 2.9 k/uL (1.3-7.7); Neutrophils % (A) 59 %; RBC 4.78 m/uL (4.30-5.90); RDW 12.3 % (11.5-15.5); WBC 4.8 k/uL (3.8-10.6)
[2024-03-02 10:13] LABS: Platelet Count 90 k/uL (150-450)
[2024-03-02 10:30] LABS: Anion Gap 7 mmol/L; Blood Urea Nitrogen 10 mg/dL (9-20); Carbon Dioxide 23 mmol/L (22-30); Chloride 109 mmol/L (98-107); Glucose 111 mg/dL (74-99); Potassium 4.3 mmol/L (3.5-5.1); Sodium 139 mmol/L (137-145)
[2024-03-02 10:31] LABS: ALT 61 U/L (4-49); AST 45 U/L (17-59); African American GFR (CKD) >90 (>60 ml/min/1.73 sqM); Albumin 3.9 g/dL (3.5-5.0); Alkaline Phosphatase 136 U/L (38-126); Calcium 9.2 mg/dL (8.4-10.2); Non-African American GFR(CKD) >90 (>60 ml/min/1.73 sqM); Total Bilirubin 0.7 mg/dL (0.2-1.3); Total Protein 6.1 g/dL (6.3-8.2)
[2024-03-02 13:58] VITALS: BP 122/81; PULSE 69; RESP 18
--- NOTE | 2024-03-02 15:06 | P.PN ---
Subjective Progress Note Date: 03/02/24 This is a 28-year-old male who presented to the emergency department on February 26, with alcohol intoxication. The patient typically drinks 1/5 of liquor every day, and apparently plan to check in to [place] today, however, his alcohol level was too high and he was sent to the emergency room. The patient's mom apparently stated that he was sober for 90 days, and unfortunately, 3 weeks prior to this admission, had a relapse. He does have a history of alcohol withdrawal, and alcoholic seizures. Other than the alcohol intoxication and alcohol withdrawal syndrome and alcohol seizures, the patient's other medical history is only positive for anxiety and depression, as well as ongoing tobacco use, and marijuana use. Laboratory data includes a white count 4.9, hemoglobin 14.1, hematocrit 43.6, and a platelet count of 72,000. Sodium 136, potassium 3.2, chlorides 101, CO2 29, BUN 18, and creatinine 0.99. Glucose is 84. AST is 82, ALT is 70. Lipase is 357. The patient was out on the floor, in room 377, and, because of ongoing agitation, confusion, and active alcohol withdrawal, he was transferred to the intensive care unit, for further monitoring and management. The patient is getting Ativan, per the CIWA protocol and, in addition, I have added Haldol 4 to 8 mg every 4 hours, and Seroquel 100 mg 3 times a day. Should these medications not be able to control the patient, we will start him on dexmedetomidine or Precedex. 03/01/2024, the patient seems to be much more comfortable. The patient is currently off Precedex. Overnight, the patient was kept on Precedex at 1.4 mcg/kg/h and the patient was taken off the Precedex this morning. He is on room air oxygen. IV fluids are in the form of normal saline at rate of 75 cc an hour and the patient has normal CBC and normal electrolytes. Lipase level was 357 at time of admission dropped down to 342. The patient seems to be much more comfortable at this point in time. No agitation. No hemodynamic instability no fever. No reported aspiration. The patient is on room air oxygen. No other complaints otherwise for now. The patient remains on IV fluids. The patient remains on Ativan per protocol for alcohol withdrawals. The patient on Seroquel 100 mg p.o. 3 times daily. Patient is on thiamine. Patient is also on Librium 25 mg p.o. 3 times daily. On 03/02/2024, the patient has no specific complaints. The patient was seen by psychiatry yesterday and he was not found to be meeting inpatient criteria for psych treatment. The patient is otherwise doing well patient states his complaints. No hypoglycemic events. Most recent blood sugar is at 111. Electrolytes are all stable. BUN is at 10 with a creatinine 0.8. WC count of 4.8 with edema 14.1 and platelet count of 90. Patient is currently on Pristiq and Seroquel. Objective - Vital Signs Vital signs: Vital Signs Temp 97.8 F 03/02/24 08:08 Pulse 104 H 03/02/24 08:08 Resp 20 03/02/24 08:08 BP 140/96 03/02/24 08:08 Pulse Ox 98 03/02/24 08:08 FiO2 Intake & Output 03/01/24 03/02/24 03/02/24 18:59 06:59 18:59 Intake Total 690.748 0 Output Total 1000 Balance -309.252 0 Weight 94.1 kg Intake: IV 75 0.9% NaCl with KCl 40 Meq 75 /l 1,000 ml @ 75 mls/hr IV .[id number] TABITHA Rx#: [id number] Intake, IV Titration 615.748 Amount 0.9% NaCl with KCl 40 Meq 600 /l 1,000 ml @ 75 mls/hr IV .[id number] TABITHA Rx#: [id number] Dexmedetomidine/0.9% NaCl 15.748 (Pmx) 400 mcg In Empty Bag 1 bag @ 0.2 MCG/KG/HR 4.62 mls/hr IV .[id number] TABITHA Rx#:[id number] Oral 0 Output: Urine 1000 Other: Voiding Method Urinal Toilet Urinal # Voids 1 1 - Exam No acute distress, currently sleeping,, comfortable, arousable and communicating. On room air oxygen. No agitation. HEENT examination is grossly unremarkable. Mucous membranes are moist. No oral lesions. Neck supple. Full range of motion. No adenopathy thyromegaly or neck vein distention. Cardiovascular examination reveals regular rhythm rate. S1-S2 normal. No S3 or S4. No discernible murmur noted. v Lungs reveal clear breath sounds. Breath sounds are equal bilaterally. No adventitious lung sounds including wheezes rhonchi or crackles. v Abdomen soft bowel sounds are heard. No masses or tenderness. Extremities are intact. No cyanosis clubbing or edema. Skin is without rash or lesion. Neurologic examination is brief but nonfocal. - Labs CBC & Chem 7: 03/02/24 08:46 03/02/24 08:46 Labs: Abnormal Lab Results - Last 24 Hours (Table) 03/02/24 03/02/24 Range/Units 08:46 08:46 Plt Count 90 L (150-450) k/uL Chloride 109 H (98-107) mmol/L Glucose 111 H (74-99) mg/dL ALT 61 H (4-49) U/L Alkaline Phosphatase 136 H (38-126) U/L Total Protein 6.1 L (6.3-8.2) g/dL Assessment and Plan Plan: Chronic alcohol abuse, with alcohol withdrawal syndrome, and alcoholic seizures. Currently stable. The patient was taken off the Precedex. The patient is taking Ativan on as-needed basis per protocol. Haldol is also on board. Patient is also on Ativan, as needed, Librium 25 mg 3 times daily and Seroquel 100 mg p.o. 3 times daily. History of chronic tobacco use. History of alcoholism. History of marijuana use. History of anxiety/depression. Mild pancreatitis, currently inactive and stable in the lipase level is downtrending. Plan: Continue Pristiq Continue Seroquel 100 mg p.o. 3 times daily Haldol and Ativan as needed Monitor electrolytes Monitor lipase Monitor mental status is adequate Thiamine replacement Pulmonary and critical care services will sign off
[2024-03-02] MEDS ORDERED: LURASIDONE 60 MG TAB PO SCH (17:30)
--- NOTE | 2024-03-03 10:37 | P.DS ---
Providers Date of admission: 02/29/24 12:04 Expected date of discharge: 03/02/24 Attending physician: Roman Alas MD Consults: 02/29/24 09:48 Consult Physician Routine Consulting Provider: Adam Perez Consult Reason/Comments: ICU Management, Alcohol withdrawl, requiring copious amounts of ativan, Do you want consulting provider notified?: Yes 02/29/24 12:02 Consult Physician Routine Consulting Provider: Tommy Story Consult Reason/Comments: dts, depression Do you want consulting provider notified?: Yes Primary care physician: Stated None Hospital Course: Final diagnosis Acute alcohol intoxication Acute delirium tremens requiring massive doses of Ativan and close monitoring in the ICU on Precedex Elevated AST, ALT with alcoholic hepatitis Anxiety/depression history Hypokalemia, improved Thrombocytopenia, likely secondary to alcohol use Continued ongoing nicotine abuse Former THC use GI prophylaxis DVT prophylaxis Full code Discharge disposition Patient has decided to leave AGAINST MEDICAL ADVICE. Risks versus benefits were explained and patient signed the AMA paperwork. Patient will follow-up with provider Jing Bustamante in the outpatient setting upon discharge. Patient is to continue with current medications as prescribed and outpatient follow-up with [facility] as scheduled. Total time taken is greater than 35 minutes. Hospital course This is a 28-year-old male who was recently admitted with alcohol withdrawal and delirium tremens requiring ICU monitoring maintained on Precedex and continued CIWA protocol. Patient has been transferred out of the ICU continues with sitter for safety. Patient was evaluated by psychiatry and does not meet criteria for inpatient psychiatric services recommending outpatient follow-up with [facility] along with alcohol rehab. Patient was at [place] and will need to follow-up with primary care provider along with [facility] outpatient for a new intake appointment for continued alcohol rehab. Patient doing better not requiring Ativan wanting to go home and decided to leave AGAINST MEDICAL ADVICE. Risks versus benefits were explained by nursing staff and patient signed the AMA paperwork. Please refer to other consultation notes and medical record for further documentation. Currently no reports of chest pain, shortness of breath, or palpitations. Patient is afebrile. No reports of nausea or vomiting and patient is tolerating diet. Patient again left AGAINST MEDICAL ADVICE. Physical exam: Gen: This is a 28-year-old male who is awake, alert and oriented x 3, well- developed, well-nourished HEENT: Head is atraumatic, normocephalic. Pupils equal, round. Sclerae is anicteric. NECK: Supple. No JVD. No lymphadenopathy. No thyromegaly. LUNGS: Clear to auscultation. No wheezes or rhonchi. No intercostal retractions. HEART: Regular rate and rhythm. No murmur. ABDOMEN: Soft. Bowel sounds are present. No masses. No tenderness. EXTREMITIES: No pedal edema. No calf tenderness. NEUROLOGICAL: Patient is awake, alert and oriented x3. Cranial nerves 2 through 12 are grossly intact. Please refer to medication reconciliation sheet for a list of medications. The impression and plan of care has been dictated by Nory Florence, Nurse Practitioner as directed. Dr. Dwight MD I have performed a history and examination and MDM of this patient, discussed the same with the dictator, and agree with the dictator's assessment and plan as written ,documented as a scribe. Based on total visit time, I have performed more than 50% of the visit. Patient Condition at Discharge: Fair Plan - Discharge Summary Discharge Rx Participant: Yes New Discharge Prescriptions: No Action Lurasidone [Latuda] 60 mg PO DAILY hydrOXYzine pamoate [Vistaril] 50 mg PO BID PRN PRN Reason: Anxiety Propranolol [Inderal] 10 mg PO TID Desvenlafaxine Succinate [Pristiq] 50 mg PO DAILY QUEtiapine FUMARATE [SEROquel] 200 mg PO HS Prazosin HCl [Minipress] 4 mg PO HS Gabapentin 300 mg PO Q8H Discharge Medication List Desvenlafaxine Succinate [Pristiq] 50 mg PO DAILY 02/27/24 [History] Gabapentin 300 mg PO Q8H 02/27/24 [History] Lurasidone [Latuda] 60 mg PO DAILY 02/27/24 [History] Prazosin HCl [Minipress] 4 mg PO HS 02/27/24 [History] Propranolol [Inderal] 10 mg PO TID 02/27/24 [History] QUEtiapine FUMARATE [SEROquel] 200 mg PO HS 02/27/24 [History] hydrOXYzine pamoate [Vistaril] 50 mg PO BID PRN 02/27/24 [History] Follow up Appointment(s)/Referral(s): None,Stated [Primary Care Provider] - 1-2 days Discharge Disposition: LEFT AGAINST MEDICAL ADVICE
== END 2024-03-02 17:41 | disposition left against medical advice (07) | DRG 770 ==
LOC: EC 09:38 → 6NMEDSUR 11:01 → 3SCARD 16:59 → 2SICU 02-29 10:35 → OBSVTOIN 02-29 12:04 → 3SCARD 03-01 17:04
PROVIDERS: ADMIT Internal Medicine; ATTEND Internal Medicine
DX: F10.229 Alcohol dependence with intoxication, unspecified (principal); F10.231 Alcohol dependence with withdrawal delirium; K70.10 Alcoholic hepatitis without ascites; F31.9 Bipolar disorder, unspecified; D69.59 Other secondary thrombocytopenia; E83.39 Other disorders of phosphorus metabolism; F41.9 Anxiety disorder, unspecified; E87.6 Hypokalemia; F17.210 Nicotine dependence, cigarettes, uncomplicated; Y90.8 Blood alcohol level of 240 mg/100 ml or more; Z53.29 Procedure and treatment not carried out because of patient's decision for other reasons; Z79.899 Other long term (current) drug therapy; Z87.19 Personal history of other diseases of the digestive system
CPT/HCPCS: 36415; 80053; 80306; 80320; 81001; 82150; 83690; 83735; 84100; 84132; 85025; 85610; 96372; 96374; 96375; 96376; 99285